=== PATIENT | male | born 1970 | race African-American/Black ===

== ENCOUNTER 2016-11-17 08:15 | Emergency (ER) | payer MEDICAID ==
[~2016-11-17] VITALS: Ht 177.8 cm; Wt 108.0 kg
[2016-11-17 08:29] VITALS: BP_SYST 122
[2016-11-17] MEDS ORDERED: methylPREDNISolone SOD SUCC/PF 62.5 MG/ML VIAL IVP ONE (08:45)
[2016-11-17] MEDS ORDERED: DIPHENHYDRAMINE INJ 50 MG/ML VIAL IVP ONE (08:45)
[2016-11-17 09:03] LABS: BASOPHILS # (AUTO) 0.1 K/uL (0.0-0.2); BASOPHILS % (AUTO) 0.8 % (0.0-2.0); EOSINOPHILS # (AUTO) 0.2 K/uL (0.0-0.4); EOSINOPHILS % (AUTO) 2.7 % (0.0-4.0); HEMATOCRIT 46.8 % (36-54); HEMOGLOBIN 15.2 g/dL (14.0-18.0); LYMPHOCYTES # (AUTO) 2.4 K/uL (1.0-5.5); LYMPHOCYTES % (AUTO) 35.4 % (20.5-51.5); MEAN CORPUSCULAR HEMOGLOBIN 28 pg (27-31); MEAN CORPUSCULAR HGB CONC 32 % (32-36); MEAN CORPUSCULAR VOLUME 85 fL (79.0-98.0); MONOCYTES # (AUTO) 0.5 K/uL (0.0-1.0); MONOCYTES % (AUTO) 7.6 % (1.7-9.3); NEUTROPHILS # (AUTO) 3.7 K/uL (1.8-7.7); NEUTROPHILS % (AUTO) 53.5 % (40.0-70.0); PLATELET COUNT (AUTO) 291 K/uL (130-430); RED BLOOD CELL COUNT(AUTO) 5.48 MIL/uL (4.2-6.2); RED CELL DISTRIBUTION WIDTH 12.7 % (9.0-15.0); WHITE BLOOD COUNT (AUTO) 6.9 K/uL (4.8-10.8)
[2016-11-17 09:08] LABS: CALCIUM 8.7 mg/dL (8.4-11.0); CREATININE 1.32 mg/dL (0.55-1.30); POTASSIUM 3.7 mmol/L (3.5-5.1)
[2016-11-17 09:13] LABS: TOTAL BILIRUBIN 0.4 mg/dL (0.0-1.0); TOTAL PROTEIN, SERUM 7.4 g/dL (6.4-8.3)
[2016-11-17 10:20] VITALS: BP_SYST 134
== END 2016-11-17 10:20 | disposition home or self-care (01) ==
LOC: SED 08:15
DX: T78.3XXA Angioneurotic edema, initial encounter (principal); R03.0 Elevated blood-pressure reading, without diagnosis of hypertension
CPT/HCPCS: 36415; 80053; 85025; 96374; 96375; 99284; J1200; J2930

== ENCOUNTER 2017-02-04 15:14 | Emergency (ER) | payer MEDICAID ==
[~2017-02-04] VITALS: Ht 177.8 cm; Wt 102.1 kg
[2017-02-04 15:24] VITALS: BP_SYST 135
--- NOTE | 2017-02-04 15:24 | NUR ---
Pt placed to ER bed 08, report given to DEZ Hardy.
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
--- NOTE | 2017-02-04 15:26 | NUR ---
DR. DUMONT IN THE ROOM EXAMINING PATIENT
[2017-02-04] MEDS ORDERED: ONDANSETRON 4 MG ODT TAB PO ONE (15:30)
[2017-02-04] MEDS ORDERED: IBUPROFEN 800 MG TABLET PO ONE (15:30)
--- NOTE | 2017-02-04 15:30 | NUR ---
Pt went to CT in stable condition
--- NOTE | 2017-02-04 15:42 | NUR ---
Pt returned in stable condition and medications were given.
[2017-02-04] MEDS ORDERED: BACITRACIN 1 GM OINT TP ONE (16:15)
--- NOTE | 2017-02-04 16:20 | NUR ---
Patient given written and verbal discharge instructions and verbalizes understanding. ER MD discussed with patient the results and treatment provided. Patient in stable condition. ID arm band removed. Rx of motrin given. Patient educated on pain management and to follow up with PMD. Pain Scale 1. Opportunity for questions provided and answered.
[2017-02-04 16:25] VITALS: BP_SYST 130
== END 2017-02-04 16:20 | disposition home or self-care (01) ==
LOC: SED 15:14
DX: S16.1XXA Strain of muscle, fascia and tendon at neck level, initial encounter (principal); S09.90XA Unspecified injury of head, initial encounter; S00.31XA Abrasion of nose, initial encounter; W22.8XXA Striking against or struck by other objects, initial encounter; Y93.89 Activity, other specified; Y92.89 Other specified places as the place of occurrence of the external cause; Y99.8 Other external cause status
CPT/HCPCS: 70450; 72125; 99284; Q0162

== ENCOUNTER 2017-02-07 01:24 | Emergency (ER) | payer MEDICAID ==
[~2017-02-07] VITALS: Ht 180.3 cm; Wt 102.1 kg
[2017-02-07 01:39] VITALS: BP_SYST 130
--- NOTE | 2017-02-07 01:45 | NUR ---
Placed in room 02 . Placed on lunchroom monitor, blood pressure machine and pulse oximeter. To gown for exam. Side rails up. Report given to DEZ Calix.
--- NOTE | 2017-02-07 01:50 | NUR ---
Patient to ER C/O swelling to the face and lips. Patient states that he woke up after midnight and noticed swelling to the face, most severelly to the lips. Patient states that he had this episodes in the past. Grossely swelling to face and lips, no breathing compromise. AAOx4, unlabored breathing, no signs of acute distress.
--- NOTE | 2017-02-07 01:56 | NUR ---
ER MD Potts at bedside for evaluation
--- NOTE | 2017-02-07 02:01 | NUR ---
# 20 gauge angiocath placed to left forearm. Use of asceptic technique. Opsite placed over site. Blood return noted. Blood for lab drawn from site. Flushed with 10 cc of normal saline. No evidence of infiltration noted. Patient tolerated well.
[2017-02-07] MEDS ORDERED: FAMOTIDINE PF 20 MG/2 ML VIAL IVP ONE (02:15)
[2017-02-07] MEDS ORDERED: methylPREDNISolone SOD SUCC/PF 62.5 MG/ML VIAL IVP ONE (02:15)
[2017-02-07] MEDS ORDERED: DIPHENHYDRAMINE INJ 50 MG/ML VIAL IVP ONE ×2 (02:15→03:30)
--- NOTE | 2017-02-07 03:24 | NUR ---
Swelling to the face and lips appears to decrease in size. Patient states that he feels less pressure. VS WNL. No signs of acute distress.
[2017-02-07 04:04] VITALS: BP_SYST 125
--- NOTE | 2017-02-07 04:04 | NUR ---
Patient given written and verbal discharge instructions and verbalizes understanding. ER MD Potts discussed with patient the results and treatment provided. Patient in stable condition. ID arm band removed. IV catheter removed intact and dressing applied, no active bleeding. Rx of prednisone given. Patient educated on pain management and to follow up with PMD. Pain Scale 0/10. Opportunity for questions provided and answered.
== END 2017-02-07 04:04 | disposition home or self-care (01) ==
LOC: SED 01:24
DX: T78.3XXA Angioneurotic edema, initial encounter (principal)
CPT/HCPCS: 96374; 96375; 96376; 99284; J1200; J2930; J3490

== ENCOUNTER 2017-02-08 14:49 | Emergency (ER) | payer MEDICAID ==
[~2017-02-08] VITALS: Ht 177.8 cm; Wt 102.1 kg
[2017-02-08 14:55] VITALS: BP_SYST 149
[2017-02-08] MEDS ORDERED: BACITRACIN 1 GM OINT TP ONE (15:30)
[2017-02-08] MEDS ORDERED: ONDANSETRON 4 MG ODT TAB PO ONE (15:30)
[2017-02-08] MEDS ORDERED: KETOROLAC TROMETHAMINE 60 MG/2 ML VIAL IM ONE (15:30)
[2017-02-08 16:03] VITALS: BP_SYST 140
== END 2017-02-08 16:00 | disposition home or self-care (01) ==
LOC: SED 14:50
DX: F07.81 Postconcussional syndrome (principal)
CPT/HCPCS: 96372; 99283; J1885; Q0162

== ENCOUNTER 2017-02-13 12:41 | Emergency (ER) | payer MEDICAID ==
[~2017-02-13] VITALS: Ht 177.8 cm; Wt 104.3 kg
[2017-02-13 12:57] VITALS: BP_SYST 133
--- NOTE | 2017-02-13 13:01 | NUR ---
Pt placed to ER waiting room in stable condition.
--- NOTE | 2017-02-13 13:15 | NUR ---
Pt placed to ER bed 05, report given to DEZ Haas.
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
--- NOTE | 2017-02-13 13:20 | NUR ---
Dr Garcia at bedside examining patient
[2017-02-13] MEDS ORDERED: KETOROLAC TROMETHAMINE 60 MG/2 ML VIAL IM ONE (13:30)
[2017-02-13] MEDS ORDERED: ONDANSETRON 4 MG ODT TAB PO ONE (13:30)
[2017-02-13] MEDS ORDERED: ACETAMINOPHEN 325 MG TABLET PO ONE (13:30)
[2017-02-13 14:12] VITALS: BP_SYST 133
--- NOTE | 2017-02-13 14:20 | NUR ---
Patient given written and verbal discharge instructions and verbalizes understanding. ER MD discussed with patient the results and treatment provided. Patient in stable condition. ID arm band removed. Rx of given. Patient educated on pain management and to follow up with PMD. Pain Scale 2/10 tolerable for patient . Opportunity for questions provided and answered.
== END 2017-02-13 14:12 | disposition home or self-care (01) ==
LOC: SED 12:41
DX: F07.81 Postconcussional syndrome (principal)
CPT/HCPCS: 70450; 99284; Q0162; J1885

== ENCOUNTER 2017-09-02 11:59 | Emergency (ER) | payer MEDICAID ==
[~2017-09-02] VITALS: Ht 177.8 cm; Wt 104.3 kg
[2017-09-02 12:00] VITALS: BP_SYST 124
[2017-09-02] MEDS ORDERED: methylPREDNISolone SOD SUCC/PF 62.5 MG/ML VIAL IM ONE (12:30)
[2017-09-02] MEDS ORDERED: DIPHENHYDRAMINE HCL 12.5 MG/5 ML UDC PO ONE (12:30)
[2017-09-02 13:15] VITALS: BP_SYST 134
== END 2017-09-02 13:15 | disposition home or self-care (01) ==
LOC: SED 11:59
DX: T78.49XA Other allergy, initial encounter (principal); R22.0 Localized swelling, mass and lump, head; M79.89 Other specified soft tissue disorders; X58.XXXA Exposure to other specified factors, initial encounter
CPT/HCPCS: 96372; 99283; J2930

== ENCOUNTER 2017-09-16 02:20 | Emergency (ER) | payer MEDICAID ==
[~2017-09-16] VITALS: Ht 177.8 cm; Wt 99.8 kg
[2017-09-16 02:33] VITALS: BP_SYST 134
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
--- NOTE | 2017-09-16 02:40 | NUR ---
Placed in room 07 . To gown for exam. Side rails up. Report given to DEZ Brown.
--- NOTE | 2017-09-16 02:50 | NUR ---
ER at bedside examining patient.
[2017-09-16] MEDS ORDERED: KETOROLAC TROMETHAMINE 60 MG/2 ML VIAL IM ONE (03:00)
[2017-09-16 03:30] VITALS: BP_SYST 130
--- NOTE | 2017-09-16 03:30 | NUR ---
Patient given written and verbal discharge instructions and verbalizes understanding. ER MD Dr. Fox discussed with patient the results and treatment provided. Patient in stable condition. ID arm band removed. Rx of given. Patient educated on pain management and to follow up with PMD. Pain Scale 2/10, tolerable by patient. Opportunity for questions provided and answered.
== END 2017-09-16 03:30 | disposition home or self-care (01) ==
LOC: SED 02:20
DX: M26.629 Arthralgia of temporomandibular joint, unspecified side (principal); M79.1 Myalgia
CPT/HCPCS: 96372; 99283; J1885

== ENCOUNTER 2018-04-11 20:11 | Emergency (ER) | payer MEDICAID ==
[~2018-04-11] VITALS: Ht 177.8 cm; Wt 108.9 kg
[2018-04-11 20:34] VITALS: BP_SYST 126
[2018-04-11] MEDS ORDERED: DIPHENHYDRAMINE INJ 50 MG/ML VIAL IVP ONE (22:30)
[2018-04-11] MEDS ORDERED: FAMOTIDINE PF 20 MG/2 ML VIAL IVP ONE (22:30)
[2018-04-11] MEDS ORDERED: EPINEPHrine 1 MG/ML AMP SUBCUT ONE (22:30)
[2018-04-11] MEDS ORDERED: DEXAMETHASONE SOD PHOSPHATE 10 MG/ML VIAL IVP ONE (22:30)
[2018-04-11 22:59] LABS: BASOPHILS % (AUTO) 0.8 % (0.0-2.0); EOSINOPHILS # (AUTO) 0.3 K/uL (0.0-0.4); EOSINOPHILS % (AUTO) 5.1 % (0.0-4.0); HEMATOCRIT 42.3 % (36-54); HEMOGLOBIN 14.2 g/dL (14.0-18.0); LYMPHOCYTES % (AUTO) 51.8 % (20.5-51.5); MEAN CORPUSCULAR HEMOGLOBIN 30 pg (27-31); MEAN CORPUSCULAR HGB CONC 34 % (32-36); MEAN CORPUSCULAR VOLUME 88 fL (79.0-98.0); MONOCYTES # (AUTO) 0.5 K/uL (0.0-1.0); MONOCYTES % (AUTO) 8.1 % (1.7-9.3); NEUTROPHILS % (AUTO) 34.2 % (40.0-70.0); PLATELET COUNT (AUTO) 271 K/uL (130-430); RED BLOOD CELL COUNT(AUTO) 4.82 MIL/uL (4.2-6.2); RED CELL DISTRIBUTION WIDTH 12.6 % (9.0-15.0); WHITE BLOOD COUNT (AUTO) 5.8 K/uL (4.8-10.8)
[2018-04-11 23:44] VITALS: BP_SYST 126
== END 2018-04-11 23:44 | disposition home or self-care (01) ==
LOC: SED 20:11
DX: T78.3XXA Angioneurotic edema, initial encounter (principal); R03.0 Elevated blood-pressure reading, without diagnosis of hypertension
CPT/HCPCS: 36415; 85025; 96372; 96374; 96375; 99284; J0171; J1100; J1200; J3490

== ENCOUNTER 2019-02-02 09:04 | Emergency (ER) | payer MEDICAID ==
[~2019-02-02] VITALS: Ht 177.8 cm; Wt 104.3 kg
[2019-02-02 09:11] VITALS: BP_SYST 140
[2019-02-02] MEDS ORDERED: DEXAMETHASONE SOD PHOSPHATE 10 MG/ML VIAL IVP ONE (09:45)
[2019-02-02] MEDS ORDERED: KETOROLAC TROMETHAMINE 30 MG VIAL IVP ONE (09:45)
[2019-02-02 11:00] VITALS: BP_SYST 140
== END 2019-02-02 11:00 | disposition home or self-care (01) ==
LOC: SED 09:04
DX: S76.311A Strain of muscle, fascia and tendon of the posterior muscle group at thigh level, right thigh, initial encounter (principal); S76.011A Strain of muscle, fascia and tendon of right hip, initial encounter; W18.40XA Slipping, tripping and stumbling without falling, unspecified, initial encounter; Y93.89 Activity, other specified; Y92.009 Unspecified place in unspecified non-institutional (private) residence as the place of occurrence of the external cause; Y99.8 Other external cause status
CPT/HCPCS: 96374; 96375; 99283; J1100; J1885

== ENCOUNTER 2020-05-06 22:14 | Emergency (ER) | payer MEDICAID, SELFPAY ==
[~2020-05-06] VITALS: Ht 177.8 cm; Wt 95.3 kg
[2020-05-06 22:20] VITALS: BP_SYST 140
--- NOTE | 2020-05-06 22:20 | NUR ---
Patient to ER bed 6 to gown for evaluation. Side rails up. Report given to Michelle.
--- NOTE | 2020-05-06 22:20 | NUR ---
Pt reports possible overdose of nortriptyline 10 mg - 10 pills x 1900 today. Pt reports taking medication because he did not want his to leave him. Pt states making himself throw up after taking medication. Denies self harm or trying to commit suicide, states he just wanted to sleep. Denies SOB, LOC. Will continue to monitor.
--- NOTE | 2020-05-06 22:35 | NUR ---
Called Poison Control at [phone] and spoke with JOSE. Per recommendations: for nortriptypline 10mg about 10 pills, 6 hour observation for any cardiac reaction to medication such as hypotension tachycardia QRS widening, EKG basline strip and after 3-4 hour strip, and UDS. Dr. ELY notified. Will continue to monitor patient.
--- NOTE | 2020-05-06 22:37 | NUR ---
ER at bedside examining patient.
--- NOTE | 2020-05-06 22:49 | NUR ---
EKG performed at by Lizzeth. Physician given copy of EKG for review.
[2020-05-06 23:05] LABS: RED CELL DISTRIBUTION WIDTH 13.8 % (9.0-15.0); WHITE BLOOD COUNT (AUTO) 6.1 K/uL (4.8-10.8)
[2020-05-06 23:09] LABS: BASOPHILS # (AUTO) 0.1 K/uL (0.0-0.2); EOSINOPHILS # (AUTO) 0.4 K/uL (0.0-0.4); HEMATOCRIT 37.5 % (36-54); HEMOGLOBIN 12.8 g/dL (14.0-18.0); LYMPHOCYTES % (AUTO) 32.2 % (20.5-51.5); MEAN CORPUSCULAR HEMOGLOBIN 30 pg (27-31); MEAN CORPUSCULAR HGB CONC 34 % (32-36); MEAN CORPUSCULAR VOLUME 87 fL (79.0-98.0); MONOCYTES # (AUTO) 0.5 K/uL (0.0-1.0); MONOCYTES % (AUTO) 7.6 % (1.7-9.3); NEUTROPHILS # (AUTO) 3.2 K/uL (1.8-7.7); NEUTROPHILS % (AUTO) 52.2 % (40.0-70.0); PLATELET COUNT (AUTO) 283 K/uL (130-430); RED BLOOD CELL COUNT(AUTO) 4.34 MIL/uL (4.2-6.2)
[2020-05-06 23:20] LABS: ANION GAP 10 (5-15); CALCIUM 8.8 mg/dL (8.4-11.0); CHLORIDE 106 mmol/L (98-107); GLUCOSE 94 mg/dL (70-99); POTASSIUM 3.3 mmol/L (3.5-5.1); SODIUM SERUM 139 mmol/L (136-145); UREA NITROGEN, BLOOD 19 mg/dL (8-21)
[2020-05-06 23:24] LABS: BILIRUBIN,URINE NEGATIVE (NEGATIVE); BLOOD, URINE NEGATIVE (NEGATIVE); CLARITY/URINE CLEAR (CLEAR); COLOR,URINE YELLOW (YELLOW); GLUCOSE,URINE NEGATIVE (NEGATIVE); KETONES,URINE 1+ (NEGATIVE); LEUKOCYTE ESTERASE ,URINE NEGATIVE (NEGATIVE); NITRITE, URINE NEGATIVE (NEGATIVE); PH,URINE 5.5 (5.0-8.0); PROTEIN URINE NEGATIVE (NEGATIVE); UROBILINOGEN,URINE 0.2 (0.2-1.0)
[2020-05-06 23:28] LABS: ALANINE AMINOTRANSFERASE 216 U/L (12-78); ALBUMIN 3.7 g/dL (3.4-4.8); ALCOHOL, BLOOD 41 mg/dL (<10); ASPARTATE AMINOTRANSFERASE 148 U/L (10-37); CHOLESTEROL 144 mg/dL (<200); HDL CHOLESTEROL 60 mg/dL (>45); LDL CHOLESTEROL 67 mg/dL (<100); TOTAL BILIRUBIN 0.3 mg/dL (0.0-1.0); TRIGLYCERIDES 158 mg/dL (30-150)
[2020-05-06 23:31] LABS: GFR AFRICAN AMERICAN 70 mL/min (>90)
[2020-05-06 23:32] LABS: ACETAMINOPHEN < 1 ug/mL (1-30)
[2020-05-06 23:33] LABS: BARBITURATE, URINE NEGATIVE (NEG <=200); BENZODIAZEPINE, URINE NEGATIVE (NEG <=150); CANNABINOID, URINE POSITIVE (NEG <=50); METHAMPHETAMINES SCREEN,URINE NEGATIVE (NEG <=500); URINE AMPHETAMINE NEGATIVE (NEG <=500); URINE METHADONE NEGATIVE (NEG <=200)
[2020-05-06 23:34] LABS: COCAINE, URINE NEGATIVE (NEG <=150); OPIATE, URINE NEGATIVE (NEG <=100); PHENCYCLIDINE SCREEN,URINE NEGATIVE (NEG <=25); UR TRICYCLIC ANTIDEPRESSANTS NEGATIVE (NEG <=300); URINE OXYCODONE SCREEN NEGATIVE (NEG <=100); URINE PROPOXYPHENE SCREEN NEGATIVE (NEG <=300)
--- NOTE | 2020-05-06 23:52 | NUR ---
PET team called for patient.
[2020-05-07] MEDS ORDERED: ACETAMINOPHEN 500 MG TABLET PO ONE (00:45)
--- NOTE | 2020-05-07 01:30 | NUR ---
Tele psych med recommendation for pt is [id number] hold.
--- NOTE | 2020-05-07 01:50 | NUR ---
Gigi from Poison control anvas for an update on patient. Information provided and recommendation is to continue to monitor.
--- NOTE | 2020-05-07 02:20 | NUR ---
Dr. Hamilton is at bed side discussing psych recommendation.
[2020-05-07 02:27] VITALS: BP_SYST 123
--- NOTE | 2020-05-07 02:27 | NUR ---
Pt does not want to stay, patient is aware of recommendation. Pt eloped.
[2020-05-07 02:33] LABS: CKMB RELATIVE INDEX 0.1 (0.0-2.9); CREATINE KINASE MB 4.8 ng/mL (0-3.6)
== END 2020-05-07 02:27 | disposition left against medical advice (07) ==
LOC: SED 22:14
DX: T43.011A Poisoning by tricyclic antidepressants, accidental (unintentional), initial encounter (principal); R45.851 Suicidal ideations; F32.9 Major depressive disorder, single episode, unspecified
CPT/HCPCS: 36415; 80053; 80061; 80307; 81003; 82550; 82553; 83036; 85025; 93005; 99285; G0480; G0481; G0482